=== PATIENT | female | born 1965 | race African-American/Black ===

== ENCOUNTER 2016-11-03 14:23 | Emergency (ER) | payer OTHER ==
[~2016-11-03] VITALS: Ht 170.2 cm; Wt 102.6 kg
[2016-11-03] MEDS ORDERED: FLEXERIL5 MG PO (14:54)
[2016-11-03] MEDS ORDERED: MOTRIN600 MG PO (14:54)
[2016-11-03 16:42] VITALS: BP 125/86
== END 2016-11-03 16:43 | disposition home or self-care (01) ==
LOC: EME 14:23
DX: S16.1XXA Strain of muscle, fascia and tendon at neck level, initial encounter (principal); S39.012A Strain of muscle, fascia and tendon of lower back, initial encounter; M25.511 Pain in right shoulder; R51 Headache; V44.5XXA Car driver injured in collision with heavy transport vehicle or bus in traffic accident, initial encounter; Y92.410 Unspecified street and highway as the place of occurrence of the external cause
CPT/HCPCS: 99281; 99283